=== PATIENT | male | born 1945 | race Caucasian/White ===

== ENCOUNTER 2019-09-14 10:28 | Emergency (ER) | payer MEDICARE ==
--- OUTSIDE RECORDS SUMMARY | 2019-09-14 10:33 | XMS REPORT | Continuity of Care Document ---
:1945 External Reference #:[id number] Author Name Brennen Mcintyre M.D. (transmitted by agent of provider Kay Ovalles ) Address [address], [place] [address] Care Team Providers Name Role Phone Brennen Mcintyre III, MD - Internal Care Team Information [facility] Medicine Problems Active Problems Provider Date Arthralgia of the lower leg Brennen Mcintyre M.D. Onset: 02/29/2012 Mixed hyperlipidemia Brennen Mcintyre M.D. Onset: 02/29/2012 Pure hypercholesterolemia Brennen Mcintyre M.D. Onset: 08/12/2013 Carotid artery occlusion Brennen Mcintyre M.D. Onset: 09/05/2013 Tobacco user Brennen Mcintyre M.D. Onset: 11/02/2015 Social History Type Date Description Comments Sex Unknown Tobacco Use Start: Unknown around 1/2ppd for 20 1 ppd max, began age years 28, currently about 1/2 ppd Tobacco Use Start: Unknown Patient is a current cigarette smoker, smokes every day Smoking Status Reviewed: 08/11/19 Patient is a current cigarette smoker, smokes every day ETOH Use 10/26/2014 Rarely consumes alcohol Tobacco Use Start: Unknown Patient is a current smoker, smokes every day Exercise Exercises sporadically Very limited d/t back Type/Frequency and left leg pain. Allergies, Adverse Reactions, Alerts Description No Known Drug Allergies Medications Active Medications SIG Qnty Indications Ordering Provider Date Pravastatin Sodium Take One Tablet 90tabs E78.0 Brennen Mcintyre, 2012 20mg By Mouth AT M.D. Tablets Bedtime Medications Administered in Office Medication SIG Qnty Indications Ordering Provider Date Influenza Virus Vaccine Unknown 08/26/2015 Injection Influenza Virus Vaccine Unknown 09/16/2014 Injection Immunizations CPT Code Status Date Vaccine Reaction Lot # [id number] Given 12/05/2018 Influenza Virus Vaccine, [id number] Quadrivalent, Split, Preservative Free 31404 Given 11/08/2017 Influenza Virus Vaccine, Pt. tolerated well. No [id number] Quadrivalent, Split, immediate reaction Preservative Free noted. [id number] Given 09/20/2016 Tetanus And Diptheria (Td) For Adult Use Preservative Free 05213 Given 09/11/2016 Influ Virus Vaccine, [id number] Quadrivalent, Split Virus, [place] [address] Given 11/02/2015 Pneumococcal Conjugate [id number] Vaccine 13 Valent For Intramuscular Use 97593 Given 09/02/2015 Influenza Virus Vaccine, Quadrivalent, Split, Preservative Free 70744 Given 08/12/2013 Pneumonia Vaccine [id number] 04819 Given 08/12/2013 Flu Vaccine Split Virus [id number] Preservative Free For Indiv 3Yr Older 67326 Given 02/29/2012 Tdap - [id number] Tetanus/Diptheria/Acellular Pertussis 84431 Given 01/18/2010 Influenza Virus Vaccine, Pandemic Formulation 28789 Given 01/18/2010 Administration Swine Flu Shot Vital Signs Date Vital Result Comment 08/11/2019 3:34pm Height 67 inches 5'7" Weight 180.00 lb Heart Rate 60 /min BP Systolic Sitting 119 mmHg BP Diastolic Sitting 68 mmHg BMI (Body Mass Index) 28.2 kg/m2 12/05/2018 1:11pm Height 67 inches 5'7" Weight 181.50 lb Heart Rate 58 /min BP Systolic Sitting 128 mmHg reg adult cuff left arm BP Diastolic Sitting 72 mmHg reg adult cuff left arm Respiratory Rate 20 /min O2 % BldC Oximetry 99 % at rest on room air BMI (Body Mass Index) 28.4 kg/m2 Results Description No Information Available Procedures Date Code Description Status 12/27/2015 82839515 Colonoscopy Completed 12/22/2009 34641556 Colonoscopy Completed Medical Devices Description No Information Available Encounters Description No Information Available Assessments Date Code Description Provider 08/11/2019 M79.605 Pain in left leg Brennen Mcintyre M.D. 08/11/2019 E78.00 Pure hypercholesterolemia, unspecified Brennen Mcintyre M.D. Plan of Treatment Future Appointment(s):12/11/2019 11:00 am - [facility] Brennen Mc[facility]tyre M.D.M79.605 Pain in left legNew Therapy:Physical TherapyComments:Chronic pain in L upper leg and R calf with past hip and LS spine DJD/DDD. Sx present off and on over the past 5 years with increased sx over the past year per pt. No new trauma or unusual exertions,but pt remains quite physically active. Better with PT in the past and new order entered. Ok to use Ibuprofen as needed.E78.00 Pure hypercholesterolemia, unspecifiedComments:On Rx; due for labs in up: labs, wellness exam in Nov 2019 Functional Status Description No Information Available Mental Status Description No Information Available Referrals Description No Information Available
[2019-09-14 10:36] VITALS: BP 134/70
--- NOTE | 2019-09-14 11:07 | UC ---
Respiratory Complaint HPI - HPI Summary HPI Summary: 5-6 day history of cough, saw PCP and is taking ibuprofen but not getting better cough is phlegmy, no SOB - History of Current Complaint Chief Complaint: UCRespiratory Stated Complaint: COUGH, Time Seen by Provider: 09/14/19 10:55 Hx Obtained From: Patient Onset/Duration: Gradual Onset Timing: Constant Severity Initially: Mild Severity Currently: Moderate Pain Intensity: 8 Character: Cough: Productive Aggravating Factors: Exertion, Deep Breaths Alleviating Factors: Spontaneous Resolution Associated Signs And Symptoms: Positive: Nasal Congestion. Negative: Fever, Chills, Hemoptysis - Allergies/Home Medications Allergies/Adverse Reactions: Allergies Allergy/AdvReac Type Severity Reaction Status Date / Time No Known Allergies Allergy Verified 09/14/19 10:37 PMH/Surg Hx/FS Hx/Imm Hx Previously Healthy: Yes Endocrine History: Dyslipidemia Respiratory History: COPD - smoker - Surgical History Surgical History: None - Family History Known Family History: Positive: Diabetes - Social History Occupation: Retired Lives: With Family Alcohol Use: None Substance Use Type: None Smoking Status (MU): Light Every Day Tobacco Smoker Cessation Counseling: Patient Advised to Stop Review of Systems All Other Systems Reviewed And Are Negative: Yes Constitutional: Positive: Negative Skin: Positive: Negative Respiratory: Positive: Cough. Negative: Shortness Of Breath Cardiovascular: Positive: Negative. Negative: Palpitations, Chest Pain Neurological: Positive: Negative Psychological: Positive: Negative Is Patient Immunocompromised?: No Physical Exam Triage Information Reviewed: Yes Appearance: Well-Appearing, No Pain Distress, Well-Nourished Vital Signs: Initial Vital Signs Temp 98.4 F 09/14/19 10:32 Pulse 80 09/14/19 10:32 Resp 17 09/14/19 10:32 BP 134/70 09/14/19 10:32 Pulse Ox 97 09/14/19 10:32 Vital Signs Reviewed: Yes Eyes: Positive: Conjunctiva Clear ENT: Positive: Pharynx normal, Nasal congestion. Negative: Sinus tenderness Respiratory: Positive: No respiratory distress, Rhonchi, Other: - productive cough Cardiovascular Exam: Normal Cardiovascular: Positive: RRR Neurological Exam: Normal Psychological Exam: Normal Skin Exam: Normal Respiratory Course/Dx - Differential Dx/Diagnosis Differential Diagnosis/HQI/PQRI: Bronchitis, CHF, Influenza, Lower Resp Infection, Sinusitis Provider Diagnosis: Bronchitis Discharge ED - Sign-Out/Discharge Documenting (check all that apply): Patient Departure All imaging exams completed and their final reports reviewed: No Studies - Discharge Plan Condition: Good Disposition: HOME Prescriptions: Azithromycin TAB* [Zithromax TAB (Z-MARGARITO) 250 mg #6 tabs] 2 tab PO .TODAY, THEN 1 DAILY #1 margarito Patient Education Materials: Acute Bronchitis (ED) Referrals: Brennen Mcintyre MD [Primary Care Provider] - 2 Days (If no better) Additional Instructions: rest and drink plenty of fluids start zithromax today and take as directed use Robitussin DM cough syrup as directed - Billing Disposition and Condition Condition: GOOD Disposition: Home
== END 2019-09-14 11:16 | disposition home or self-care (01) ==
LOC: UCEAST 10:28
DX: J40 Bronchitis, not specified as acute or chronic (principal); J44.9 Chronic obstructive pulmonary disease, unspecified; F17.290 Nicotine dependence, other tobacco product, uncomplicated
CPT/HCPCS: 99212; G0463